=== PATIENT | male | born 1995 | race Two or more races ===

== ENCOUNTER 2018-08-02 18:00 | Emergency (ER) | payer OTHER ==
--- NOTE | 2018-08-02 18:09 | EDPHY ---
H & P Stated Complaint: Allergic reaction Time Seen by Provider: 08/02/18 18:09 HPI/ROS: HPI CHIEF COMPLAINT: Allergic reaction. HISTORY OF PRESENT ILLNESS: 23-year-old male presents emergency room with allergic reaction. Patient states this started over an hour ago. Earlier today he had a salad avocado and brooks he has been on the ketogenic diet. He states he never had allergic reaction before. He denies any trouble breathing trouble swallowing however broke out in urticaria rash with diffuse urticaria. Past Medical History: Denies significant medical history Past Surgical History: Denies significant surgical history Social History: Denies drugs alcohol tobacco. Family History: Noncontributory ROS REVIEW OF SYSTEMS: 10 Systems were reviewed and negative with the exception of the elements mentioned in the history of present illness. Exam Constitutional he appears well nontoxic triage nursing summary reviewed, vital signs reviewed, awake/alert. Vital signs stable tachycardic. Eyes normal conjunctivae and sclera, EOMI, PERRLA. HENT normal inspection, atraumatic, moist mucus membranes, no epistaxis, neck supple/ no meningismus, no raccoon eyes. Respiratory clear to auscultation bilaterally, normal breath sounds, no respiratory distress, no wheezing. Cardiovascular tachycardic, regular rhythm, no murmur, no edema, distal pulses normal. Gastrointestinal soft, non-tender, no rebound, no guarding, normal bowel sounds, no distension, no pulsatile mass. Genitourinary no CVA tenderness. Musculoskeletal no midline vertebral tenderness, full range of motion, no calf swelling, no tenderness of extremities, no meningismus, good pulses, neurovascularly intact. Skin diffuse urticaria. Neurologic awake, alert and oriented x 3, AAOx3, moves all 4 extremities equally, motor intact, sensory intact, CN II-XII intact, normal cerebellar, normal vision, normal speech. Psychiatric normal mood/affect. Heme/Lymph/Immune no lymphadenopathy. Differential Diagnosis: Includes but is not limited to in a particular order severe allergic reaction, anaphylaxis, food allergy Medical Decision Making: Plan for this patient IV establishment IV fluid bolus , shelter monitor, IM epinephrine, IV Pepcid, IV Solu-Medrol, IV Benadryl close monitoring. Re-evaluation: 2143 patient has been evaluated for over 3 hr in the emergency room and continues to do well. No further allergic reaction symptoms. Rash is completely gone. No trouble breathing no trouble swallowing. Patient has been monitored for extensive period time. No recurrence of symptoms. Recommend prednisone, Benadryl, Pepcid for the next 3 days. Epinephrine pen ordered. Return precautions discussed with the patient understands return emergency room if worsening symptoms including recurrence of allergic reaction, chest pain, shortness of breath, rash. Patient is comfortable this plan would like to go home. Source: Patient - Personal History Current Tetanus/Diphtheria Vaccine: Yes - Medical/Surgical History Hx Asthma: No Hx Chronic Respiratory Disease: No Hx Diabetes: No Hx Cardiac Disease: No Hx Renal Disease: No Hx Cirrhosis: No Hx Alcoholism: No Other PMH: Denies - Social History Smoking Status: Never smoked Constitutional: Initial Vital Signs Temperature (C) 36.5 C 08/02/18 18:00 Heart Rate 128 H 08/02/18 18:00 Respiratory Rate 25 H 08/02/18 18:00 Blood Pressure 101/79 08/02/18 18:00 O2 Sat (%) 94 08/02/18 18:00 O2 Delivery Mode Room Air Allergies/Adverse Reactions: No Known Allergies Allergy (Unverified 08/02/18 18:04) Home Medications: Medication Instructions Recorded EPINEPHrine [Epipen 0.3 MG] 0.3 mg IM ONCE #2 syr 08/02/18 Famotidine [Pepcid 20 MG (*)] 20 mg PO BID #6 tab 08/02/18 diphenhydrAMINE [Benadryl 25 MG 25 mg PO BID #6 tab 08/02/18 (*)] predniSONE 60 mg PO DAILY #9 tab 08/02/18 Medical Decision Making - Data Points Laboratory Results: Laboratory Results 08/02/18 18:15 08/02/18 18:15 08/02/18 08/02/18 18:15 18:15 WBC 8.90 10^3/uL 10^3/uL (3.80-9.50) RBC 6.73 10^6/uL H 10^6/uL (4.40-6.38) Hgb 19.6 g/dL H g/dL (13.7-17.5) Hct 55.8 % H % (40.0-51.0) MCV 82.9 fL fL (81.5-99.8) MCH 29.1 pg pg (27.9-34.1) MCHC 35.1 g/dL g/dL (32.4-36.7) RDW 12.5 % % (11.5-15.2) Plt Count 335 10^3/uL 10^3/uL (150-400) MPV 10.3 fL fL (8.7-11.7) Neut % (Auto) 68.0 % % (39.3-74.2) Lymph % (Auto) 22.6 % % (15.0-45.0) [place] % (Auto) 7.9 % % (4.5-13.0) Eos % (Auto) 0.9 % % (0.6-7.6) Baso % (Auto) 0.4 % % (0.3-1.7) Nucleat RBC Rel Count 0.0 % % (0.0-0.2) Absolute Neuts (auto) 6.05 10^3/uL 10^3/uL (1.70-6.50) Absolute Lymphs (auto) 2.01 10^3/uL 10^3/uL (1.00-3.00) Absolute Monos (auto) 0.70 10^3/uL 10^3/uL (0.30-0.80) Absolute Eos (auto) 0.08 10^3/uL 10^3/uL (0.03-0.40) Absolute Basos (auto) 0.04 10^3/uL 10^3/uL (0.02-0.10) Absolute Nucleated RBC 0.00 10^3/uL 10^3/uL (0-0.01) Immature Gran % 0.2 % % (0.0-1.1) Immature Gran # 0.02 10^3/uL 10^3/uL (0.00-0.10) Sodium 137 mEq/L mEq/L (135-145) Potassium 4.3 mEq/L mEq/L (3.5-5.2) Chloride 105 mEq/L mEq/L (97-110) Carbon Dioxide 16 mEq/l L mEq/l (22-31) Anion Gap 16 mEq/L H mEq/L (6-14) BUN 17 mg/dL mg/dL (7-23) Creatinine 1.2 mg/dL mg/dL (0.7-1.3) Estimated GFR > 60 Glucose 101 mg/dL H mg/dL (70-100) Calcium 9.7 mg/dL mg/dL (8.5-10.4) Medications Given: Discontinued Medications Diphenhydramine HCl (Benadryl Injection) 25 mg IVP EDNOW ONE Stop: 08/02/18 18:13 Last Admin: 08/02/18 18:16 Dose: 25 mg Epinephrine HCl (Epinephrine) 0.3 mg IM EDNOW ONE Stop: 08/02/18 18:13 Last Admin: 08/02/18 18:16 Dose: 0.3 mg Sodium Chloride (Ns) 1,000 mls @ 0 mls/hr IV EDNOW ONE; Wide Open PRN Reason: Protocol Stop: 08/02/18 18:13 Last Admin: 08/02/18 18:16 Dose: 1,000 mls Famotidine 20 mg/ Sodium (Chloride) 102 mls @ 408 mls/hr IV EDNOW ONE Stop: 08/02/18 18:26 Last Admin: 08/02/18 18:17 Dose: 102 mls Sodium Chloride (Ns) 1,000 mls @ 0 mls/hr IV ONCE ONE PRN Reason: Wide Open Stop: 08/02/18 21:08 Last Admin: 08/02/18 21:13 Dose: 1,000 mls Methylprednisolone Sodium Succinate (Solu-Medrol) 125 mg IVP EDNOW ONE Stop: 08/02/18 18:13 Last Admin: 08/02/18 18:16 Dose: 125 mg Ondansetron HCl (Zofran) 4 mg IVP EDNOW ONE Stop: 08/02/18 18:23 Last Admin: 08/02/18 18:25 Dose: 4 mg Departure - Departure Disposition: Home, Routine, Self-Care Clinical Impression: Allergic reaction Qualifiers: Encounter type: initial encounter Qualified Code(s): T78.40XA - Allergy, unspecified, initial encounter Acute anaphylaxis Qualifiers: Encounter type: initial encounter Qualified Code(s): T78.2XXA - Anaphylactic shock, unspecified, initial encounter Condition: Good Instructions: Urticaria (ED), Food Allergy (ED), Anaphylaxis (ED) Additional Instructions: 1. Follow up with an inverter and clipper. 2. Return to the emergency room if you have worsening allergic reaction type symptoms. Referrals: NONE *PRIMARY CARE P,. [Primary Care Provider] - As per Instructions [facility] [Clinic] - As per Instructions Prescriptions: diphenhydrAMINE [Benadryl 25 MG (*)] 25 mg PO BID #6 tab EPINEPHrine [Epipen 0.3 MG] 0.3 mg IM ONCE #2 syr Famotidine [Pepcid 20 MG (*)] 20 mg PO BID #6 tab predniSONE 60 mg PO DAILY #9 tab
[2018-08-02] MEDS ORDERED: methylPREDNISolone SOD SUCC 125 MG/2 ML VIAL IVP ONE (18:12)
[2018-08-02] MEDS ORDERED: NS 1,000 ML IV ONE ×2 (18:12→21:07)
[2018-08-02] MEDS ORDERED: EPINEPHrine 1 MG/ML INJ IM ONE (18:12)
[2018-08-02] MEDS ORDERED: FAMOTIDINE 20 MG in NS 100 ML IV ONE (18:12)
[2018-08-02] MEDS ORDERED: FAMOTIDINE 20 MG/2 ML SDV ONE (18:13)
[2018-08-02] MEDS ORDERED: EPINEPHrine 1 MG/ML INJ ONE (18:13)
[2018-08-02] MEDS ORDERED: methylPREDNISolone SOD SUCC 125 MG/2 ML VIAL ONE (18:13)
[2018-08-02] MEDS ORDERED: ONDANSETRON 4 MG/2 ML VIAL IVP ONE (18:22)
[2018-08-02 18:29] LABS: PLATELET COUNT 335 10^3/uL (150-400)
[2018-08-02 21:59] VITALS: BP 101/67
== END 2018-08-02 22:01 | disposition home or self-care (01) ==
DX: L50.0 Allergic urticaria (principal); T78.09XA Anaphylactic reaction due to other food products, initial encounter; E86.9 Volume depletion, unspecified
CPT/HCPCS: 96374; J0171; J1200; J2405; J2930